=== PATIENT | male | born 1945 | race Asian ===

== ENCOUNTER 2019-07-04 21:56 | Emergency (ER) | payer OTHER ==
[~2019-07-04] VITALS: Ht 175.3 cm; Wt 81.6 kg
[2019-07-04 22:14] VITALS: BP 133/69; TEMP 98.1
[2019-07-04 23:02] LABS: PLATELET COUNT 230 K/uL (142-355)
[2019-07-05] MEDS ORDERED: BENZ1TAB43 PO (01:43)
[2019-07-05] MEDS ORDERED: ZYPREXA PO (01:46)
[2019-07-05] MEDS ORDERED: TRILEPTAL150 MG PO (01:49)
== END 2019-07-04 23:57 | disposition still patient (30) ==
LOC: ED 22:12
PROVIDERS: Emergency Medicine
DX: F03.91 Unspecified dementia, unspecified severity, with behavioral disturbance (principal); E87.1 Hypo-osmolality and hyponatremia; Z04.6 Encounter for general psychiatric examination, requested by authority
CPT/HCPCS: 36415; 80053; 85027; 93005; 99285

== ENCOUNTER 2019-11-16 04:54 | Emergency (ER) | payer OTHER ==
[~2019-11-16] VITALS: Ht 175.3 cm; Wt 81.6 kg
[~2019-11-16 04:54] MED LIST: BENZ1TAB43 PO; FOLI1TAB26 PO; OLANZAPINE10 MG PO; OXCARBAZEPIN300 MG PO; RISP0.25 PO; RISP1TAB PO; TRILEPTAL150 MG PO; ZYPREXA PO; [UNRECOGNIZED DRUG - CODE] IM
[2019-11-16 05:00] VITALS: TEMP 99
[2019-11-16 05:46] LABS: PLATELET COUNT 203 K/uL (142-355)
[2019-11-16 05:54] LABS: POTASSIUM 3.7 mmol/L (3.6-5.2)
[2019-11-16 07:40] VITALS: BP 120/62
== END 2019-11-16 07:40 | disposition other institution (70) ==
LOC: ED 04:54
PROVIDERS: Family Medicine
DX: R46.89 Other symptoms and signs involving appearance and behavior (principal); F20.89 Other schizophrenia; Z04.6 Encounter for general psychiatric examination, requested by authority
CPT/HCPCS: 80053; 81000; 85027; 93005; 99285

== ENCOUNTER 2022-11-03 19:40 | Emergency (ER) | payer OTHER ==
[~2022-11-03] VITALS: Ht 172.7 cm; Wt 65.9 kg
[~2022-11-03 19:40] MED LIST changes: +DIPHENHYDRAM50 MG/ML IM; +HALO5INJ3 IM; +RISP50IN IM
[2022-11-03 19:47] VITALS: BP 161/76; TEMP 97.9
[2022-11-03 20:24] LABS: PLATELET COUNT 218 K/uL (142-355)
[2022-11-03 20:36] LABS: POTASSIUM 3.9 mmol/L (3.6-5.2)
[2022-11-04] MEDS ORDERED: HALO50IN4 IM (09:34)
[2022-11-04] MEDS ORDERED: HALO5TAB10 PO (09:40)
== END 2022-11-03 21:05 | disposition still patient (30) ==
LOC: ED 19:40
PROVIDERS: Emergency Medicine
DX: F20.0 Paranoid schizophrenia (principal); R45.1 Restlessness and agitation; I10 Essential (primary) hypertension; E11.9 Type 2 diabetes mellitus without complications; G20 Parkinson's disease; F17.210 Nicotine dependence, cigarettes, uncomplicated; Z11.52 Encounter for screening for COVID-19; Z04.6 Encounter for general psychiatric examination, requested by authority
CPT/HCPCS: 36415; 80053; 81002; 85008; 85027; 87635; 93005; 99283; U0003

== ENCOUNTER 2023-02-17 16:40 | Emergency (ER) | payer OTHER ==
[~2023-02-17] VITALS: Ht 172.7 cm; Wt 68.0 kg
[2023-02-17 16:40] VITALS: BP 146/89; TEMP 97.6
[~2023-02-17 16:40] MED LIST changes: +HALO50IN4 IM; +HALO5TAB10 PO; +MAGNSUS68 PO
[2023-02-17 17:05] LABS: PLATELET COUNT 238 K/uL (142-355)
[2023-02-17 17:13] LABS: POTASSIUM 4.5 mmol/L (3.6-5.2)
[2023-02-17] MEDS ORDERED: [UNRECOGNIZED DRUG - OTHER] TOP (18:24)
[2023-02-17] MEDS ORDERED: HALO10TA5 PO (18:26)
[2023-02-17] MEDS ORDERED: MAGNSUS68 PO (18:32)
== END 2023-02-17 17:51 | disposition still patient (30) ==
LOC: ED 16:45
PROVIDERS: Emergency Medicine
DX: F03.911 Unspecified dementia, unspecified severity, with agitation (principal); Z11.52 Encounter for screening for COVID-19; Z04.6 Encounter for general psychiatric examination, requested by authority
CPT/HCPCS: 36415; 80053; 81002; 85027; 87635; 99283; U0003